=== PATIENT | female | born 1990 | race Caucasian/White ===

== ENCOUNTER 2017-04-21 20:48 | Inpatient (IN) | payer OTHER ==
[~2017-04-21] VITALS: Ht 167.6 cm; Wt 147.8 kg
[~2017-04-21 20:48] MED LIST: CLOMIPHENE CITR50 MG PO; ESCITALOPRAM OX10 MG PO; GUAIATUSSIN AC10 ML PO; METFORMIN HCL750 MG PO; PROGESTERONE200 MG PO; VITAMIN D250000 UNIT PO; ZITHROMAX500 MG PO
--- NOTE | 2017-04-22 00:30 | NUR ---
PT ARRIVED VIA STRETCHER WITH ENCAPSULATOR AND FAMILY. PT STOOD AND TRANSFERED TO THE BED. PT TOLERATED WELL. PT IS AMBULATORY WITH NO ISSUES. PT DENIES DIZINESS AND NAUSEA/VOMITING AT THIS TIME.
--- NOTE | 2017-04-22 01:30 | NUR ---
PT COMPLAINING OF PAIN 01/17. GAVE PRN PAIN MEDICATION. STARTED IV FLUIDS. PT RESTING IN BED AT THIS TIME. ORIENTED TO ROOM AND CALL LIGHT. ALL QUESTIONS ANSWERED. EDUCATED TO CALL STAFF BEFORE GETTING UP TO GO TO THE BATHRROM. UPDATED PT THAT SHE IS NPO AND WILL REMAINS NPO THROUGHOUT THE NIGHT. NO OTHER ISSUES AT THIS TIME.
--- NOTE | 2017-04-22 02:30 | NUR ---
SPOKE WITH MD TO UPDATE. PER MD IF PT DOES NOT URINATE BY 0400 GIVE 1L LR BOLUS. MD WANTS PT URINE GOAL AT 300ML EVERY 4 HOURS. NO OTHER ISSUES AT THIS TIME. WILL CONTINUE TO MONITOR.
--- NOTE | 2017-04-22 03:25 | NUR ---
PT WOKE AND ASKED TO GET UP TO BATHROOM. GT DISCONNECTED FROM MONITORS AND ASSISTED TO BATHROOM WITH NO ISSUES. PT IS STABLE ON FEET. PT TOLERATED WELL AND ASSISTED BACK TO BED. PT HAS FAMILY AT BEDSIDE. PT BACK IN BED AND RECONNECTED TO MONITOR. WILL CONTINUE TO MONITOR.
--- NOTE | 2017-04-22 04:47 | NUR ---
PT REQUESTING PAIN MEDICATION FOR PAIN 01/17. GAVE PRN PAIN MEDICATION AND ZOFRAN. PT TOLERATED WELL. PT DENIED ANY OTHER ISSUES AT THIS TIME. CALL LIGHT IN REACH. WILL CONTINUE TO CLOSELY MONITOR.
--- NOTE | 2017-04-22 07:34 | NUR ---
BEDSIDE REPORT RECEIVED FROM JOSE FAUST. PT RESTING UPON INITIAL ASSESSMENT AND AWAKENS EASILY. PT STATES SHE IS DOING OKAY OVERALL, BUT PAINFUL WITH A RATE OF 6/10 ACROSS ABDOMEN. PT REQUESTING NEXT DOSE OF PAIN MEDICATION IF AVAILABLE. IVF CONTINUE AT 250 ML/HR. ASSESSMENT COMPLETE AT THIS TIME. PT'S FATHER AT BEDSIDE.
--- NOTE | 2017-04-22 07:47 | NUR ---
DR. LAKHANI IN ROOM TO EVALUATE PATIENT. PT TO BE GIVEN 0.5 MG IV DILAUDID FOR PAIN MANAGEMENT. MEDICAL STUDENT IN ROOM WITH PATIENT WELL. PT'S AND FATHER IN ROOM.
--- NOTE | 2017-04-22 10:10 | NUR ---
DIRECTOR EHS STARTED FOR PATIENT AND EDUCATION REGARDING DIRECTOR EHS USE GONE OVER WITH PATIENT. DIRECTOR EHS SETTINGS ARE DILAUDID 0.1 MG DIRECTOR EHS DOSE, 8 MINUTE LOCK OUT WITH A 4 HR LIMIT OF 5 MG. HEART RATE 74 CURRENTLY, MOST RECENT BP 154/88 (104). SP02 IS 95% ON ROOM AIR AND CONT PULSE OX IS ON. CONTINUE TO MONITOR.
--- NOTE | 2017-04-22 10:56 | NUR ---
MED REC COMPLETE, PATIENT TAKES NO HOME MEDICATIONS.
--- NOTE | 2017-04-22 12:57 | NUR ---
PATIENT GIVEN 15 MG IV TORADOL AT THIS TIME FOR A HEADACHE. PATIENT STATES HER PAIN IS A LITTLE BETTER CONTROLLED WITH THIS DIRECTOR [employer]CHO[employer]. PT AMBULATES UP TO BATHROOM TO VOID AT THIS TIME. CONTINUE TO MONITOR. FAMILY IN ROOM.
--- NOTE | 2017-04-22 20:35 | NUR ---
PT IS ALERT/DROWSY, UTILIZES ROTARY OPERATOR NEEDED. VS WNL, PAIN DECREASES FROM 6/10-2/10. NO ACUTE DISTRESS, RR WNL. PT VOIDED 200 ML AND D5LR AT 200 ML/HR CONTINUES, IV SITE WNL, SKIN IS WARM/AFEBRILE, HR 80'S. BT HYPOACTIVE. PT ENCOURAGED TO USE I.S. - RN OBSERVED I.S 2000 ML. PT IS USING THE I.S INTERMITTENTLY TOLERATED.
--- NOTE | 2017-04-22 22:09 | NUR ---
PT'S VS WNL, RESTING, LEADERSHIP INTERN WITHIN REACH.
--- NOTE | 2017-04-23 07:45 | NUR ---
PT TOLERATING SAMPLE SHOE INSPECTOR AND REWORKER, ACTIVATES SAMPLE SHOE INSPECTOR AND REWORKER DOSES INDEPENDENTLY, SAMPLE SHOE INSPECTOR AND REWORKER BUTTON WITHIN REACH. 3.7 MG DILAUDID DURING THE NIGHT. PT HAS NO NUMBNESS OR TINGLING.
--- NOTE | 2017-04-23 08:36 | NUR ---
PT AWAKE AND ALERT X4. PT RATES ABD PAIN AT 4/10 ENCOURAGED PT TO USE MASTER PILOT. PT RATES HEADACHE AT 6/10 IV TORADOL GIVEN. PT ASSISTED WITH ADL'S: WASHED FACE WITH WARM WASH CLOTH, BRUSHED TEETH. IV SITE IN RT AC INTACT, FLUIDS INFUSING ESILY. PT COOPERATIVE AND POLITE. VITALS WNL.
--- NOTE | 2017-04-23 09:20 | NUR ---
IV SITE STARTED BY RADHIKA WAYNE RN, 20 G IN RT WRIST. FLUSHES EASILY, PT CLAUDE WELL.
--- NOTE | 2017-04-23 09:30 | NUR ---
PRE-OP HIBACLEANSE WIPE DOWN DONE, GOWN CHANGED.
--- NOTE | 2017-04-23 10:05 | NUR ---
IV SITE IN RT AC INFILTRATED, WARM PACK APPLIED AFTER IV DC'D. TIP OF CATH INTACT. PT STATES "THIS JUST FEELS KIND OF TIGHT". WILL CONTINUE TO MONITOR.
--- NOTE | 2017-04-23 10:26 | NUR ---
PT LEFT CCU FOR OR WITH JOSSIE GARCIA.
--- NOTE | 2017-04-23 13:03 | NUR ---
04/23/17 1303 Sonja Knight 1255 PATIENT ARRIVES SLEEPING, OPENS EYES TO VERBAL STIMULI BUT DOES NOT FOLLOW COMMANDS, THEN BACK TO SLEEP. RESP EVEN, UNLABORED, COARSE AUDIBLE SOUNDS FROM THROAT, MASK AT 10 LITERS.
--- NOTE | 2017-04-23 13:39 | NUR ---
VISITED WITH PT'S PARENTS AND FOLLOWING SURGERY. THEY WERE HEADING BACK TO HER RM, GAVE DIRECTIONS TO HER NEW RM, AND EXTENDED A BLESSING. WILL FOLLOW NEEDED
--- NOTE | 2017-04-23 13:47 | CONS ---
[facility] [address], [place] [address] Signed DATE OF CONSULTATION: 04/23/17 REFERRING PHYSICIAN: Dr. Terry Joya. CHIEF COMPLAINT: Right upper quadrant and epigastric abdominal pain. HISTORY OF PRESENT ILLNESS Sy is a 26-year-old, obese female, who presented with significant right upper quadrant epigastric abdominal pain radiating through to her back. It is worse after meals. She said it has been there for several months but yesterday it was quite terrible. In the emergency room, she was tender in the right upper quadrant epigastric region with an elevated white count and elevated liver function tests. Her lipase was also high at 8945. A CT scan was performed. It showed some edema to the head and body of the pancreas but no discussion of the common bile duct or the gallbladder. Consequently, she was admitted to the Internal Medicine service. An ultrasound was then ordered and of course, she has a gallbladder completely full of gallstones. Common bile duct seemed to be unremarkable. Given that I was asked to see her as a general surgeon hydro excavation operator. In the meantime, Sy says she is feeling better, although she still feels some pain and fullness in the upper abdomen. PAST MEDICAL HISTORY: Polycystic ovarian disease, obesity. PAST SURGICAL HISTORY: [place]and teeth extractions without. SOCIAL HISTORY She smokes half pack cigarettes a day. She drinks alcohol all once or twice a month. She is and they live in [place]. 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 They have no children. She prefers [facility]. She has been doing business classe s for college online. FAMILY HISTORY: Mom has hypertension and diabetes. Dad is healthy. REVIEW OF SYSTEMS: I reviewed 10 systems with Sy and really nothing new to add. ALLERGIES: None. MEDICATIONS: None. PHYSICAL EXAMINATION VITAL SIGNS: Blood pressure is 111/71, heart rate 83, respiratory rate 19 temperature 98.4, sats 98% on room air. She is 5 feet 6 inches at 147 kg. GENERAL: Sy is a 26-year-old female who is lying supine in her in ICU bed. Her dad is at the bedside. She does not appear systemically ill or toxic. She is not Electronically Signed By: NAHID ALBARADO MD 04/23/17 1347 PATIENT NAME: SY ORTEGA CONSULTATION DATE OF : 89 PHYSICIAN: NAHID ALBARADO MD REPORT #: [id number] REPORT IS CONFIDENTIAL AND NOT TO BE RELEASED WITHOUT AUTHORIZATION [facility] [address], [place] [address] Signed jaundiced. LUNGS: Clear to auscultation bilaterally. HEART: Regular rate and rhythm. ABDOMEN: Obese and soft, but she does have some tenderness to deep palpation in the right upper quadrant and the epigastric area. LABORATORY DATA Her white blood cell count is 12.3 with neutrophils 71, BUN 3, creatinine 0.48. Her total bilirubin 0.4. AST is down to 43. ALT down to 136. Alkaline phosphatase down to 58. Her lipase is down to 370. Albumin 3.1. Her beta HCG is negative. Magnesium on the low side at 1.6. RADIOGRAPHIC STUDIES Reviewed and the CT scan shows the edema to the head of the pancreas and the body of the pancreas with what appears to be a small umbilical hernia. Her gallbladder does not appear to be particularly enlarged. No gallbladder wall thickness or pericholecystic fluid. The ultrasound was reviewed and it does have the wall echo shadow sign with an unremarkable common bile duct. ASSESSMENT AND PLAN Sy is a 26-year-old, obese female, who presents with gallstone pancreatitis. She is now improving. I had a long discussion with Sy and her dad regarding the location and function of the gallbladder relative to the pancreas. She also understands the difference between laparoscopic and open cholecystectomy. She understands the concept of removing the gallbladder with the gallstones to prevent further episodes of gallstone pancreatitis. She understand the expected intraop and postop course. There is risk to surgery including, but not limited to bleeding, infection, scarring, change in contour the skin, damage to the main bile duct, incisional hernias and other unforeseen comorbidities and possibly need for ERCP. She had expressed understanding and wished to proceed. Nahid Albarado MD AB/Miguelitol /[id number] cc: Francisco Fabian MD Electronically Signed By: NAHID ALBARADO MD 04/23/17 1347 PATIENT NAME: SY ORTEGA CONSULTATION DATE OF : 89 PHYSICIAN: NAHID ALBARADO MD REPORT #: [id number] REPORT IS CONFIDENTIAL AND NOT TO BE RELEASED WITHOUT AUTHORIZATION
--- NOTE | 2017-04-23 14:20 | NUR ---
PATIENT TO MED-SURG FLOOR VIA STRETCHER FROM SURGERY. REPORT RECEIVED FROM PACU NURSE BLANCO. PATIENT IS DROWSY, BUT A&O. FOUR LAP SITES NOTED, COVERED WITH GUAZE AND SURGERY TAPE. IV SITE PATENT, FLUID AND BOOK RETAILER RESTARTED. SCD ON. PATIENT IS 2L OF 02 VIA NC. CONTINUE PULSE OXYMETRY ON. PATIENT REPORTS NAUSEA AND PATIENT WAS MEDICATED WITH ZOFRAN. RESTING IN BED AT THIS TIME. WILL CONTINUE TO MONITOR.
--- NOTE | 2017-04-23 15:25 | NUR ---
IN TO ROOM TO ASSESS PATIENT. VITAL SIGNS TAKEN AND WNL. PATIENT WAS ASSESSED TO BATHROOM TO VOID. DENIES ANY DIZZINESS UPON STANDING. VOIDED 800ML. PATIENT BACK TO BED WITH NO DIFFICULTY. PATIENT ENCOURAGED TO DEEP BREATHING AND USE I/S. MANAGER PROGRAM MANAGEMENT IN USE FOR PAIN. WILL CONTINUE TO MONITOR.
--- NOTE | 2017-04-23 16:59 | NUR ---
PATIENT SITTING IN BED, DENIES NAUSEA, REPORTS MINIMAL ABD PAIN. PATIENT EATING DINNER AT THIS TIME. PO POTASSIUM ADMINISTERED WITH FOOD. FAMILY AT BEDSIDE. NO APPARENT DISTRESS.
--- NOTE | 2017-04-23 17:25 | NUR ---
IN TO ROOM TO TAKE PATIENT VITAL SIGNS. PATIENT REPORTS THAT HER PAIN IS BETTER. DENIES NAUSEA. PATIENT IS AWAKE, A&O. NO APPARENT DISTRESS NOTED. PATIENT IS OFF OXYGEN AND SAT @ 92.
--- NOTE | 2017-04-23 18:35 | NUR ---
PATIENT HAD A FAIR AFTERNOON. HAD LAP TYSON SURGERY TODAY. PAIN WELL CONTROLED WITH DILAUDID PRACTICE PHYSICIAN. ABLE TO EAT DINNER, AND DENIES NAUSEA. 4 LAP SITES, D/C. PATIENT ON ROOM AIR AT THIS TIME, MAY NEED O2 WHILE SLEEPING. CONT. PULSE OXIMETER ON. PATIENT HAS BEEN UP TO BATHROOM AND VOIDED Q/S. HYPOACTIVE BOWEL TONE.
--- NOTE | 2017-04-23 19:20 | NUR ---
IN TO SEE PT, REPORT RECV'D FROM MARGARET GARCIA. PT AWAKE WATCHING TV. IVF INSUFING AND DILAUDID AEROBICS TEACHER IN PLACE. PT DENIES NAUSEA. PULSE OX IN PLACE, PT 90% ON RA, WILL MONITOR. WILL PLACE PT ON O2 WHILE SLEEPING PER RT RECOMMENDATIONS. NO FURTHER NEEDS AT THIS TIME. CALL LIGHT IN REACH.
--- NOTE | 2017-04-23 19:35 | NUR ---
HELPED PATIENT TO THE BATHROOM. GOT HER ICE WATER.
--- NOTE | 2017-04-23 20:42 | NUR ---
IN TO GIVE PM MEDICATIONS, PT AWAKE. RATES PAIN A 4/10 IN ABDOMINAL AREA. DISCUSSED STARTING ORAL PAIN MEDICATION, PT AGREES. PT WOULD LIKE TO START WITH NORCO 5/325 MG, 1 PO. ADVISED THAT MEDICATION CAN BE INCREASED IF NEEDED. NO FURTHER NEEDS AT THIS TIME. CALL LIGHT IN REACH.
--- NOTE | 2017-04-24 00:12 | NUR ---
IN TO CHECK ON PT, PT APPEARS TO BE SLEEPING. RR EVEN AT 16 AND UNLABORED. O2 AND PULSE OX IN PLACE. IVF INFUSING. PT'S FATHER AT BEDSIDE. CALL LIGHT WITH IN REACH.
--- NOTE | 2017-04-24 01:48 | NUR ---
IN TO CHECK ON PT, PT AWAKE FOR VITALS. PT RATES PAIN A 2/10, PO NORCO GIVEN. PT UP TO BATHROOM WITH STANDBY ASSIST, TOLERATED WELL. ASSISTED BACK TO BED, ASSESSMENT DONE. FRESH WATER GIVEN. NO FURTHER NEEDS AT THIS TIME. CALL LIGHT IN REACH.
--- NOTE | 2017-04-24 02:56 | NUR ---
PT CALLED, IN TO CHECK ON PT. IVF REPLACED. PT STATES HER PAIN IS "GOOD." DILAUDID SPECIAL MACHINE STITCHER IN PLACE. PULSE OX ON AND O2 @ 1.5 LITERS. NO FURTHER NEEDS AT THIS TIME. CALL LIGHT IN REACH.
--- NOTE | 2017-04-24 07:15 | NUR ---
BEDSIDE HANDOFF REPORT RECEIVED FROM BELT CHANGER RN. PT RESTING IN BED. LAP SITES WITH GAUZE AND TAPE, SMALL AMOUNT OF SHADOWING. PT ON ROOM AIR, O2 SATS 93%. PT DENIES OTHER NEEDS AT THIS TIME.
--- NOTE | 2017-04-24 08:30 | NUR ---
PT RESTING IN BED. MD AT BEDSIDE, DISCUSSED DISCHARGE FOR TODAY. PT STATES PAIN TOLERABLE, RATING PAIN 2/10. PT ON ROOM AIR, LUNG SOUNDS CLEAR WITH DIMINISHED BASES, ENCOURAGED I/S. PT BOWEL TONES ACTIVE, DENIES NAUSEA, TOLERATING ADA DIET. ABD WITH LAP SITES X4, DRESSING REMOVED BY DR. ALBARADO, EDGES WELL APPROXIMATED, NO REDNESS OR DISCHARGE NOTED. PT UP WITH SBA. NO EDEME NOTED, PULSES PALPABLE. PT DENIES OTHER NEEDS AT THIS TIME, FATHER AT BEDSIDE.
--- NOTE | 2017-04-24 09:45 | OR ---
[facility] [address], [place] [address] Signed DATE OF PROCEDURE: 04/23/17 PREOPERATIVE DIAGNOSES Cholelithiasis with cholecystitis. Pancreatitis. POSTOPERATIVE DIAGNOSES Cholelithiasis with cholecystitis. Pancreatitis. Choledocholithiasis versus choledochal cyst. PROCEDURE Laparoscopic cholecystectomy without intraoperative cholangiogram. ESTIMATED BLOOD LOSS: None. FINDINGS Sy had her gallbladder completely full of very dry desiccated cholesterol and cholesterol stones. The gallbladder wall was quite thin. The cystic duct was extremely small, 2 mm maybe at the most. The intraoperative cholangiogram would not pass down the very narrow stenosed cystic duct. We did notice bulging of the portal triad in the linear fashion headed down towards the duodenum. We were not sure if that is a normal variant versus Choledocholithiasis versus choledochal cyst. It was quite soft to palpation with our laparoscopic instruments. INDICATIONS Sy is a 26-year-old obese female who was having trouble with significant right upper quadrant and epigastric abdominal pain. She had come to the emergency room for evaluation. White count was slightly up with elevated liver function test, although the total bilirubin was only 0.4. Her lipase was also elevated at 8945. She had a CT scan of the abdomen and pelvis performed and she had edema around the head and body of the pancreas. She had been admitted to the Internal Medicine service. The following morning, she underwent her ultrasound and there was a wall echo shadow sign suggesting the entire gallbladder was full of stones. The common bile duct was unremarkable. Again, her total bilirubin was low and her liver function tests were improving, and her lipase had dropped to 370. I have been asked to see her as a general surgeon on-call. I met with Sy and her family and we discussed the location and function of the gallbladder. We discussed laparoscopic versus open cholecystectomy. She also understands there is risk including, but not limited to bleeding, infection, scarring, change in contour of the skin, damage to bowel, damage to main bile duct, incisional hernias and other unforeseen comorbidities or possibly need for additional testing and/or procedures. They had expressed understanding and wished to proceed. Electronically Signed By: NAHID ALBARADO MD 04/24/17 0945 PATIENT NAME: SY ORTEGA OPERATIVE REPORT DATE OF : 89 PHYSICIAN: NAHID ALBARADO MD REPORT #: [id number] REPORT IS CONFIDENTIAL AND NOT TO BE RELEASED WITHOUT AUTHORIZATION [facility] [address], [place] [address] Signed PROCEDURE NOTE Sy was taken into operating room and placed in the supine position under general endotracheal tube anesthesia. She was given preoperative antibiotics along with subcutaneous Lovenox. SCDs were utilized. She was then prepped and draped in the usual sterile fashion. All trocars were then placed in usual positions under direct visualization of camera without difficulty. The gallbladder was grasped and elevated into the right upper quadrant. Pictures were taken throughout for photo documentation. We took a few minutes to take down the surrounding fat from the gallbladder and then we very carefully dissected out the triangle of Calot. Her cystic artery was running along next to a very small cystic duct. It was easily divided. There was also another small artery posteriorly and somewhat laterally and a clip was placed on that near the edge of the gallbladder fossa. We took our time a n d we dissected very carefully through the tissues and we came to a very tiny cystic duct. We made just a small tyler in that with our scissors and confirmed there was a lumen. We then did our best to place our intraoperative cholangiocatheter into this without success. We, therefore, placed 2 clips across this tiny cystic duct to secure its opening. However, we did see a much larger more dilated appearing duct traveling down the portal triad towards the duodenum. It seemed to be very soft as we ran our dissector along the length of it. We did squeeze it gently and we did not feel any obvious gallstones in that area. It may be this is a slightly dilated common duct or maybe a small choledochal cyst. Nevertheless, we are going to investigate that further after surgery. We did not feel justified in dissecting that free currently. After this, the gallbladder was carefully removed from the gallbladder fossa with the help of cautery and placed into an EndoCatch bag. The right upper quadrant was irrigated and suctioned out until clear. The laparoscopic suturing device was used to pass 0 Vicryl suture on either side of the fascia, the subxiphoid trocar site. This was tied down to close this fascia primarily. After this, all the gas was allowed to escape and all the trocars were removed along with the small contracted gallbladder. The gallbladder was opened on the back table by our circulating nurse. The circumference of the gallbladder was all yellow cholesterol sludge, almost like putty. The center had showed some yellow cholesterol stones as a very thick fluid. We then closed the supraumbilical fascial defect with interrupted [id number] and simple 0 Vicryl sutures. Local anesthetic was copiously injected into all trocar sites. Each trocar site was irrigated and suctioned out until clear. The skin and dermis of each trocar site were closed with interrupted 3-0 subcuticular Monocryl sutures. Dry gauze and tape were then applied. Sy was then awakened from anesthesia, extubated in the OR, and taken to recovery room in stable condition. Electronically Signed By: NAHID ALBARADO MD 04/24/17 0945 PATIENT NAME: SY ORTEGA OPERATIVE REPORT DATE OF : 89 PHYSICIAN: NAHID ALBARADO MD REPORT #: [id number] REPORT IS CONFIDENTIAL AND NOT TO BE RELEASED WITHOUT AUTHORIZATION [address] [address] Signed MD DARCY Leal/Roro /[id number] cc: Francisco Fabian MD Electronically Signed By: NAHID ALBARADO MD 04/24/17 0945 PATIENT NAME: SY ORTEGA OPERATIVE REPORT DATE OF : 89 PHYSICIAN: NAHID ALBARADO MD REPORT #: [id number] REPORT IS CONFIDENTIAL AND NOT TO BE RELEASED WITHOUT AUTHORIZATION
--- NOTE | 2017-04-24 11:10 | NUR ---
PT REQUESTING PAIN MEDICATION, RATING PAIN 6/10. GIVEN 2 TAB NORCO. DILAUDID ASSISTANT COMMISSIONER DISCONTINUED. PT UP INDEPENDENT IN ROOM. PT PREPARING FOR DISCHARGE. PT DENIES OTHER NEEDS AT THIS TIME.
[2017-04-24] MEDS ORDERED: NORCO 5-325 TA1 EACH PO ×2 (11:16→11:18)
[2017-04-24] MEDS ORDERED: VENTOLIN HFA18 GM (11:16)
--- NOTE | 2017-04-27 16:51 | DS ---
[facility] [address], [place] [address] Signed DATE OF DISCHARGE: 04/24/17 FINAL DIAGNOSES Cholelithiasis with cholecystitis. Pancreatitis. Possible Choledocholithiasis versus choledochal cyst. PROCEDURE Laparoscopic cholecystectomy without intraoperative cholangiogram. ESTIMATED BLOOD LOSS: None. HISTORY OF PRESENT ILLNESS Sy is a 26-year-old obese female, who was having trouble with right upper quadrant epigastric abdominal pain. She had come to the emergency room for evaluation. White count was elevated along with her liver function tests. However, the total bilirubin was normal at 0.4. In addition, the lipase was also elevated at 8945. She had a CT scan of the abdomen and pelvis performed and she had edema of the head and body of the pancreas. She then had an ultrasound performed and she had a wall echo shadow sign with an unremarkable common bile duct. She had been admitted to the Internal Medicine Service. I have been consulted the following morning to see the patient. HOSPITAL COURSE I met with Sy and her family here in the hospital. We explained the above findings and took her to surgery that same day. She had a contracted gallbladder absolutely full of yellow cholesterol gallstones. Her cystic duct was only a couple millimeters in diameter. We could not pass our intraoperative cholangiocatheter down the cystic duct. In the meantime, we did see a tubular structure running along the length of the portal triad. At first, we thought there might be a couple of stones in there, but with more inspection, we were not sure that it could have been a slight dilation, maybe a very small choledochal cyst. Nevertheless, it probably needs an outpatient endoscopic ultrasound. Otherwise, Sy's surgery went quite well. All her laboratory works markedly improved this morning. In fact, this is almost normal. She looks and feels much better. She is tolerating diet and her pain is under good control with hydrocodone. At this point, we are going to be discharging her to home. DISCHARGE PLANS AND MEDICATIONS Sy will be discharged to home with a prescription for Geyser 5/325 one to two tablets p.o. q.4-6 hours p.r.n. pain. We will dispense 60 tablets with no refills. She is welcome to shower and bathe as needed. She can perform her activities of daily living. She should not lift over 20 pounds. We will have her stay off work a few days. I will have her back in the office in a week or so. I have reviewed this with Sy Electronically Signed By: NAHID ALBARADO MD 04/27/17 1651 PATIENT NAME: SY ORTEGA DISCHARGE SUMMARY DATE OF : 90 PHYSICIAN: NAHID ALBARADO MD REPORT #: [id number] REPORT IS CONFIDENTIAL AND NOT TO BE RELEASED WITHOUT AUTHORIZATION [address] [address] Signed and her family in detail along with the surgical photos. They have expressed understanding and agreed to above plan. MD DARCY Leal/Roro /[id number] cc: Francisco Fabian MD Electronically Signed By: NAHID ALBARADO MD 04/27/17 1651 PATIENT NAME: SY ORTEGA DISCHARGE SUMMARY DATE OF : 89 PHYSICIAN: NAHID ALBARADO MD REPORT #: [id number] REPORT IS CONFIDENTIAL AND NOT TO BE RELEASED WITHOUT AUTHORIZATION
== END 2017-04-24 13:20 | disposition home or self-care (01) | DRG 417 ==
LOC: ED 20:48 → CCU 04-22 00:10 → MS 04-23 13:35
PROVIDERS: Colon & Rectal Surgery; ADMIT Internal Medicine
PROC: BF031ZZ Plain Radiography of Gallbladder and Bile Ducts using Low Osmolar Contrast (ICD-10-PCS; 2017-04-23)
PROC: 0FT44ZZ Resection of Gallbladder, Percutaneous Endoscopic Approach (ICD-10-PCS; principal; 2017-04-23 11:00)
DX: K80.10 Calculus of gallbladder with chronic cholecystitis without obstruction (principal); K85.90 Acute pancreatitis without necrosis or infection, unspecified; Z68.43 Body mass index [BMI] 50.0-59.9, adult; K80.50 Calculus of bile duct without cholangitis or cholecystitis without obstruction; R74.0 Nonspecific elevation of levels of transaminase and lactic acid dehydrogenase [LDH]; E83.42 Hypomagnesemia; F17.210 Nicotine dependence, cigarettes, uncomplicated; E66.01 Morbid (severe) obesity due to excess calories
CPT/HCPCS: 00790; 36415; 74177; 76705; 80053; 81001; 82150; 83690; 83735; 84100; 84703; 85025; 94762; 96361; 96374; 96375; 99285; 99406; J0330; J0690; J1100; J1170; J1650; J1885; J2250; J2405; J2704; J3475; J7030; J7120; Q9967

== ENCOUNTER 2023-03-18 08:55 | Day surgery (SDC) | payer BC | END 2023-03-18 17:40 | disposition home or self-care (01) | LOC: DS 08:55 | PROC: 0WUF0JZ Supplement Abdominal Wall with Synthetic Substitute, Open Approach (ICD-10-PCS; principal; 2023-03-18) | DX: K43.0 Incisional hernia with obstruction, without gangrene (principal); E66.9 Obesity, unspecified; E11.9 Type 2 diabetes mellitus without complications; Z68.42 Body mass index [BMI] 45.0-49.9, adult ==